=== PATIENT | male | born 1970 ===

== ENCOUNTER 2020-08-22 08:53 | Inpatient (IN) | payer SELFPAY ==
[~2020-08-22] VITALS: Ht 182.9 cm; Wt 87.4 kg
[2020-08-22] MEDS ORDERED: IV NORMAL SALINE 1,000ML 1,000 ML IV ONE ×2 (09:00→10:45)
--- NOTE | 2020-08-22 09:05 | PHYS DOC ---
General Adult EDM: Chief Complaint: DEHYDRATION HPI: HPI: Patient is a 49-year-old male presenting via EMS for "dehydration". Patient takes [id number] says he has been drinking soda throughout the day. Has history of schizophrenia 33 point past medications. States he feels lightheaded and his urine has been darker. Denies any history of diabetes. States of the past daily since he has felt dehydrated is been trying to increase his water intake. Has been seen twice in the past 2 years for the same complaint. Review of Systems: Review of Systems: Constitutional: Denies fever or chills, has been light headed Eyes: Denies change in visual acuity HENT: Denies nasal congestion or sore throat Respiratory: Denies cough or shortness of breath Cardiovascular: Denies chest pain or edema GI: Denies abdominal pain, nausea, vomiting, bloody stools or diarrhea : Denies dysuria, but has had darker urine Musculoskeletal: Denies back pain or joint pain Integument: Denies rash Neurologic: Denies headache, focal weakness or sensory changes Endocrine: Denies polyuria or polydipsia Lymphatic: Denies swollen glands Psychiatric: Denies depression or anxiety Allergies: Allergies: Allergies Coded Allergies Type Severity Reaction Last Updated Verified No Known Drug Allergies 08/22/20 No Physical Exam: PE: Constitutional: Well developed, well nourished, no acute distress, non-toxic appearance. [] HENT: Normocephalic, atraumatic, bilateral external ears normal, oropharynx mo ist, no oral exudates, nose normal. [] Eyes: PERRLA, EOMI, conjunctiva normal, no discharge. [] Neck: Normal range of motion, no tenderness, supple, no stridor. [] Cardiovascular:Heart rate regular rhythm, no murmur [] Lungs & Thorax: Bilateral breath sounds clear to auscultation [] Abdomen: Bowel sounds normal, soft, no tenderness, no masses, no pulsatile masses. [] Skin: Warm, dry, no erythema, no rash. [] Back: No tenderness, no CVA tenderness. [] Extremities: No tenderness, no cyanosis, no clubbing, ROM intact, no edema. [] Neurologic: Alert and oriented X 3, normal motor function, normal sensory function, no focal deficits noted. [] Psychologic: Affect normal, judgement normal, mood normal. [] EKG: EKG: Sinus rhythm, normal axis, no ST elevation or depression, PVCs infrequently [] Radiology/Procedures: Radiology/Procedures: [] Heart Score: Risk Factors: Risk Factors: DM, Current or recent (<one month) smoker, HTN, HLP, family history of CAD, obesity. Risk Scores: Score 0 - 3: 2.5% MACE over next 6 weeks - Discharge Home Score 4 - 6: 20.3% MACE over next 6 weeks - Admit for Clinical Observation Score 7 - 10: 72.7% MACE over next 6 weeks - Early Invasive Strategies Course & Med Decision Making: Course & Med Decision Making Pertinent Labs and Imaging studies reviewed. (See chart for details) Normal saline and admitted to hospital for evaluation of hyponatremia. [] Dragon Disclaimer: Dragon Disclaimer: This electronic medical record was generated, in whole or in part, using a voice recognition dictation system. Departure Departure: Impression: Primary Impression: Dehydration Additional Impression: Hyponatremia Disposition: ADMITTED INPT THIS HOSP Admitting Physician: Chandler Solorzano Condition: STABLE YOJANA COLVIN MD Aug 22, 2020 09:05
[2020-08-22 09:13] LABS: BASO % 1 % (0-3); EOS % 0 % (0-3); HEMOGLOBIN 14.5 g/dL (13.0-17.5); LYMPH # 0.8 x10^3/uL (1.0-4.8); LYMPH % 15 % (24-48); MEAN CORPUSCULAR HEMOGLOBIN 34 pg (25-35); MEAN CORPUSCULAR HGB CONC 35 g/dL (31-37); MEAN CORPUSCULAR VOLUME 97 fL (79-100); MONO # 0.4 x10^3/uL (0.0-1.1); MONO % 7 % (0-9); NEUT # 4.4 x10^3uL (1.8-7.7); NEUT % 78 % (31-73); PLATELET COUNT 304 x10^3/uL (140-400); RED BLOOD COUNT 4.23 x10^6/uL (4.30-5.70); RED CELL DISTRIBUTION WIDTH 13.9 % (11.5-14.5); WHITE BLOOD COUNT 5.7 x10^3/uL (4.0-11.0)
[2020-08-22 09:27] LABS: ALBUMIN 4.1 g/dL (3.4-5.0); ALBUMIN/GLOBULIN RATIO 1.1 (1.0-1.7); CALCIUM 8.8 mg/dL (8.5-10.1); CREATININE 0.9 mg/dL (0.7-1.3); GFR 89.7; POTASSIUM 3.5 mmol/L (3.5-5.1); TOTAL BILIRUBIN 0.6 mg/dL (0.2-1.0); TOTAL PROTEIN 7.7 g/dL (6.4-8.2)
[2020-08-22 10:32] LABS: BILIRUBIN,URINE NEG (NEG); CLARITY,URINE CLEAR; COLOR,URINE AMBER; GLUCOSE,URINE NEG (NEG)
[2020-08-22 10:33] LABS: BACTERIA,URINE 0 /HPF (0-FEW); NITRITE,URINE NEG (NEG); RBC,URINE OCC /HPF (0-2); SQUAMOUS EPITHELIAL CELL,UR FEW /LPF; UROBILINOGEN,URINE >=8.0 mg/dL (0.2 mg/dL)
[2020-08-22] MEDS ORDERED: ONDANSETRON PF 4 MG/2 ML VIAL. IVP PRN (11:00)
[2020-08-22] MEDS ORDERED: ACETAMINOPHEN 325 MG TABLET PO PRN (11:00)
[2020-08-22] MEDS ORDERED: ONDANSETRON PF 4 MG/2 ML VIAL. IVP ONE (11:00)
--- NOTE | 2020-08-22 12:40 | EKG ---
ED [facility] [address] [place] [id number] Test Date: 2020-08-22 Test Time: 09:05:13 Pat Name: SAHRA NEW Department: Room: Gender: M Maintenance Service Dispatcher: : 1970 Requested By: YOJANA COLVIN Order Number: [id number] Reading MD: Yousif Ansari Measurements Intervals [place] Rate: 81 P: 49 CO: 210 QRS: 80 QRSD: 90 T: 67 QT: 378 QTc: 440 Interpretive Statements SINUS RHYTHM VENTRICULAR PREMATURE COMPLEX(ES) LEFT ATRIAL ABNORMALITY INCOMPLETE RIGHT BUNDLE BRANCH BLOCK ABNORMAL ECG RI6.02 No previous ECG available for comparison Electronically Signed On 08-23-2020 15:35:36 [employer]ENTAL SALES AGENT by Yousif Ansari
[2020-08-22 13:00] VITALS: BP 156/89
--- NOTE | 2020-08-22 13:03 | HP ---
ADMIT DATE: 08/22/2020 ATTENDING PHYSICIAN: Dr. Coleman. CHIEF COMPLAINT: Weakness. HISTORY OF PRESENT ILLNESS: The patient is a 49-year-old gentleman admitted through the ED with a 2-day history of worsening symptoms of he describes dehydration. Clinically, he is dehydrated. He said he has been feeling lightheaded. Urine has been darker. He is on a diuretic. He is also on schizoaffective drugs. He could not tell me the name or the dosages. In the meantime, I am asking the nursing staff to call the pharmacies around [facility] to ascertain what medicine he has been prescribed. He was found to have a serum sodium 119 mEq per liter. He has been seen twice and hospitalized at [facility] with similar episodes in the last 2 years. PAST MEDICAL HISTORY: Significant for schizoaffective disorder, hypertension. ALLERGIES: He has no known drug allergies. CURRENT MEDICATIONS: He is on a definite diuretic. Exact name and dosages is unclear at this time and we are in the process of ascertaining this. SOCIAL HISTORY: He is a smoker, half a pack of cigarettes a day. He denies any alcohol use. FAMILY HISTORY: Noncontributory. REVIEW OF SYSTEMS: Significant for the increased thirst. He has had some mild abdominal discomfort, some nausea. No fevers, chills, COVID exposure, cough, congestion. All other systems were reviewed and determined to be negative. PHYSICAL EXAMINATION: GENERAL: When I saw him, this is a pleasant, middle-aged gentleman. INITIAL VITAL SIGNS: Showed a blood pressure 153/106, pulse is 80 and regular. He was afebrile, oxygen saturation 99% on room air. HEENT: Head is without trauma. Pupils are reactive. Sclerae nonicteric. Oropharynx clear. Mucous membranes dry. NECK: Supple, no bruits identified. LUNGS: Otherwise, clear to auscultation. CARDIOVASCULAR: Showed regular heart tones. No gallops. Peripheral pulses are palpable and full. ABDOMEN: Soft, nontender to palpation. Bowel sounds are hypoactive. EXTREMITIES: Showed no cyanosis or edema. NEUROLOGIC: Focally intact. Speech is fluent. SKIN: Warm and dry. PERTINENT LABORATORY STUDIES: Hemoglobin is 14.5 g/dL with white count of 5700. Admission serum sodium is 119, chloride concomitantly low at 83 mEq/L, potassium is 3.5 mEq, creatinine is 0.9. Transaminases normal. Nonfasting blood sugar 103. ASSESSMENT: 1. A 49-year-old gentleman with dehydration, aggravated by diuretics. 2. Symptomatic hyponatremia. 3. Underlying schizoaffective disorder. 4. Essential hypertension. PLAN: 1. Admit to the inpatient unit. 2. IV hydration with saline. 3. Serial chemistries. 4. I will review his medications once we can find the list. 5. Diet as tolerated. MALICK COLEMAN MD DR: FRANCESCA/tony JOB#: [id number] / [id number]
[2020-08-22] MEDS ORDERED: LISI-334 PO (14:20)
[2020-08-22] MEDS ORDERED: QUET100T4 PO (14:20)
[2020-08-22] MEDS ORDERED: CARB200C7 PO (14:20)
[2020-08-22] MEDS ORDERED: HYDR12.58 PO (14:20)
[2020-08-22] MEDS ORDERED: FAMO20TA5 PO (14:20)
[2020-08-22] MEDS ORDERED: ARIP30TA21 PO (14:20)
[2020-08-22] MEDS ORDERED: SERT100T PO (14:20)
[2020-08-22] MEDS ORDERED: GABA800T5 PO (14:20)
[2020-08-22] MEDS: IV NORMAL SALINE 1,000ML 1,000 ML IV SCH ×2 (14:50→23:56)
[2020-08-22] MEDS ORDERED: GABA-587 PO (14:56)
[2020-08-22] MEDS ORDERED: ARIPiprazole 15 MG TABLET PO SCH ×2 (15:00→21:00)
[2020-08-22 15:52] VITALS: BP 145/89
[2020-08-22] MEDS: hydroCHLOROthiazide 12.5 MG CAPSULE PO SCH (16:01)
[2020-08-22] MEDS: carBAMazepine 200 MG TABLET PO SCH (16:01)
[2020-08-22] MEDS: LISINOPRIL 20 MG TABLET PO SCH (16:02)
[2020-08-22] MEDS: SERTRALINE 100 MG TABLET. PO SCH (16:02)
[2020-08-22 20:12] VITALS: BP 132/81
[2020-08-22] MEDS ORDERED: QUEtiapine 100 MG TABLET. PO SCH (21:00)
[2020-08-22] MEDS: FAMOTIDINE 20 MG TABLET PO SCH (22:05)
[2020-08-22] MEDS: GABAPENTIN 400 MG CAPSULE. PO SCH (22:05)
[2020-08-22 23:04] VITALS: BP 132/86
--- NOTE | 2020-08-23 04:08 | NUR ---
Nursing note: Assumed care of pt at approx. 1900. Pt up x1-2 assist, medications given per orders.
[2020-08-23 05:21] VITALS: BP 127/77
[2020-08-23 07:02] LABS: BASO % 0 % (0-3); EOS % 0 % (0-3); HEMATOCRIT 36.4 % (39.0-53.0); HEMOGLOBIN 12.8 g/dL (13.0-17.5); LYMPH # 0.9 x10^3/uL (1.0-4.8); LYMPH % 14 % (24-48); MEAN CORPUSCULAR HEMOGLOBIN 34 pg (25-35); MEAN CORPUSCULAR HGB CONC 35 g/dL (31-37); MEAN CORPUSCULAR VOLUME 97 fL (79-100); MONO # 0.5 x10^3/uL (0.0-1.1); MONO % 8 % (0-9); NEUT # 4.8 x10^3uL (1.8-7.7); NEUT % 77 % (31-73); PLATELET COUNT 282 x10^3/uL (140-400); RED BLOOD COUNT 3.76 x10^6/uL (4.30-5.70); RED CELL DISTRIBUTION WIDTH 13.4 % (11.5-14.5); WHITE BLOOD COUNT 6.3 x10^3/uL (4.0-11.0)
[2020-08-23 07:17] LABS: CALCIUM 7.9 mg/dL (8.5-10.1); CREATININE 0.7 mg/dL (0.7-1.3); GFR 119.9; POTASSIUM 3.3 mmol/L (3.5-5.1)
--- NOTE | 2020-08-23 08:00 | NUR ---
Dr. Solorzano here to see patient. Patient states he wants to sign out AMA. Dr. Solorzano explained in detail and the importance of patient's condition and the need for patient to stay for treatment of hyponatremia and hypokalemia. This RN educated patient in great detail the importance of sodium and potassium in regards to cardiac tissue and the risks of not completing treatment. Patient did agree to let us infuse magnesium 1 gram and give potassium supplement and morning medications. Reviewed all discharge instructions with patient, written instructions were given to patient. Patient's sister is on her way to pick patient up in about 1 hour.
[2020-08-23] MEDS ORDERED: MAGNESIUM SULFATE 1GM 100 ML IV ONE (08:45)
[2020-08-23] MEDS ORDERED: POTASSIUM CHLORIDE 10 MEQ TABLET.ER. PO SCH (09:00)
[2020-08-23] MEDS: carBAMazepine 200 MG TABLET PO SCH (09:30)
[2020-08-23] MEDS: FAMOTIDINE 20 MG TABLET PO SCH (09:30)
[2020-08-23] MEDS: GABAPENTIN 400 MG CAPSULE. PO SCH (09:30)
[2020-08-23] MEDS: SERTRALINE 100 MG TABLET. PO SCH (09:30)
[2020-08-23 09:31] VITALS: BP 127/77
[2020-08-23] MEDS: hydroCHLOROthiazide 12.5 MG CAPSULE PO SCH (09:31)
[2020-08-23] MEDS: LISINOPRIL 20 MG TABLET PO SCH (09:31)
[2020-08-23] MEDS: IV NORMAL SALINE 1,000ML 1,000 ML IV SCH (09:34)
--- NOTE | 2020-08-23 10:25 | NUR ---
pt was assisted to get dressed, IV dc'd without complications. pt wheeled to pov upon discharge.
--- NOTE | 2020-08-23 16:00 | NUR ---
PT'S SISTER CALLED TO INFORM US THAT THERE IS A MEDICATION ERROR ON PT'S HOME MED LIST. DR HILLMAN HAD GIVEN PT A SCRIPT FOR TEGRETOL, WHICH WAS FILLED AND PT HAS BEEN TAKING FOR 7 DAYS NOW. PT'S PSYCH DR TOOK HIM OFF TEGRETOL YEARS AGO AND HAD TOLD THEM HE SHOULDN'T EVER TAKE IT AGAIN. SISTER IS VERY CONCERNED THAT SHE MADE THE ERROR ON THE MED LIST. PT IS CRAWLING AROUND THE FLOOR AT HOME BC HE THINKS HE IS GOING TO FALL, PT IS NAUSEATED AFTER DRINKING A BIG GLASS OF ORANGE JUICE. SISTER IS CONCERNED ABOUT GIVING PT HIS OTHER PSYCH MEDS TONIGHT DUE TO PT'S SYMPTOMS. SPOKE TO DR COLEMAN, HE AGREED WITH PT HOLDING HIS OTHER PSYCH MEDS TONIGHT AND SEE HOW PT IS IN THE MORNING. ADVISED SISTER THAT IF CONCERNED, PT CAN COME BACK TO ER TO BE EVALUATED, THEY CAN CALL EMS IF THEY CAN'T GET HIM IN THE POV. SISTER, JOSEFA STATES THAT PT IS REFUSING TO COME BACK TO ER. ADVISED SISTER TO TRY AND CALL DR MAHMOOD ABOUT PSYCH MEDS
--- NOTE | 2020-08-23 18:20 | DS ---
DATE OF DISCHARGE: 08/23/2020 ATTENDING PHYSICIAN: Dr. Coleman. FINAL DISCHARGE DIAGNOSES: 1. Dehydration. 2. Hyponatremia. 3. Schizoaffective disorder. 4. Essential hypertension. HISTORY AND PHYSICAL: This 49-year-old gentleman admitted through the ED with 2-day history of increasing worsening symptoms of dehydration and weakness. His urine has been darker. He is on a diuretic, hydrochlorothiazide. He is also on schizoaffective drugs. Admission serum sodium was 119 mEq per liter. No seizures. No heart arrhythmias. PHYSICAL EXAMINATION: Please see the dictated note. PERTINENT LABORATORY AND X-RAY STUDIES: Sodium with hydration next day came up slightly to 121, potassium 3.3 mEq. I did order intravenous magnesium as well as oral supplementation of potassium. Hemoglobin is 12.8, white count 6300. COURSE IN THE HOSPITAL: The patient was admitted and started on normal saline with serial chemistries, potassium and magnesium replacement. His serum sodium came up to 121 the next day. I went to see him, he is clinically doing better. I told him that since this would not happen overnight, it will take several days with the sodium to correct hopefully, he insisted on going home. I therefore had him sign AMA papers. The patient then left the hospital against medical advice. At this time, I would recommend that he stop the hydrochlorothiazide. He should continue his Abilify, Tegretol, Seroquel, and Zoloft, doses unchanged. He will follow up with his PCP that prescribed this medication. The patient was then left the hospital against medical advice. MALICK COLEMAN MD DR: FRANCESCA/tony JOB#: [id number] / [id number]
== END 2020-08-23 10:25 | disposition home or self-care (01) | DRG 641 ==
LOC: ER 08:53 → 1 SOUTH 11:00
PROVIDERS: ADMIT Hospitalist; ATTEND Hospitalist
DX: E86.0 Dehydration (principal); E87.1 Hypo-osmolality and hyponatremia; F17.200 Nicotine dependence, unspecified, uncomplicated; F25.9 Schizoaffective disorder, unspecified; I10 Essential (primary) hypertension
CPT/HCPCS: 36415; 80048; 80053; 81001; 83605; 85025; 93005; 96361; 96374; 99285; J2405; J3475; J7030